=== PATIENT | male | born 1970 | race Caucasian/White ===

== ENCOUNTER 2017-12-18 06:32 | Inpatient (IN) ==
[2017-12-18 07:15] LABS: Basophils # 0.1 10*3/uL (0.0-0.2); Eosinophils # 0.4 10*3/uL (0.0-0.87); Eosinophils % 4.8 % (0.00-10.9); Hematocrit 45.1 VOL% (42.0-52.0); Hemoglobin 15.5 GM/DL (14.0-18.0); Immature Granulocytes % 0.5 %; Immature Granulocytes Absolute 0.04 #; Lymphocytes # 2.1 10*3/uL (1.4-4.0); Lymphocytes % 23.8 % (21.2-54.2); Mean Corpuscular HGB Conc 34.4 GM/DL (32-36); Mean Corpuscular Hemoglobin 30 PG (27-34); Mean Corpuscular Volume 88.3 FL (87-102); Monocytes # 0.8 10*3/uL (0.11-0.8); Monocytes % 9.4 % (1.7-12.7); Neutrophils # 5.2 10*3/uL (1.4-7.4); Neutrophils % 60.5 % (38.7-73.9); Platelet Count 239 T/CUMM (130-400); Red Blood Count 5.11 MC/CUMM (3.8-5.5); Red Cell Distribution Width 12.5 % (9.3-17.3); White Blood Count 8.7 T/CUMM (4-12)
[2017-12-18 07:20] LABS: Apearance,Urine CLEAR (Clear); Bilirubin,Urine Negative (Negative); Blood, Urine Negative (Negative); Glucose,Urine (UA) Negative (Negative); Hyaline Casts,Urine 1 /LPF (0-3); Ketones,Urine Negative (Negative); Mucus,Urine Occasional /LPF (Occasional); Nitrite,Urine Negative (Negative); Protein,Urine 30 MG/DL; RBC,Urine <1 /HPF (0-4); Urine Color Yellow (Yellow); Urine Specific Gravity 1.014 (1.001-1.035); Urine Urobilinogen < 2.0 EU/DL (0.2-1.0); WBC,Urine 1 /HPF (0-6)
[2017-12-18 07:33] LABS: Barbiturates Screen,Urine Negative (Negative); Benzodiazepines Screen,Urine Negative (Negative); Cannabinoid Screen,Urine Negative (Negative); Opiate Screen,Urine Negative (Negative); Phencyclidine Screen,Urine Negative (Negative)
[2017-12-18 07:46] LABS: Alanine Aminotransferase 26 U/L (16-61); Albumin 4.1 G/DL (3.4-5.0); Alkaline Phosphatase 100 U/L (45-117); Aspartate Amino Transferase 14 U/L (0-37); Blood Urea Nitrogen 9 MG/DL (7-18); Calcium 9.2 MG/DL (8.5-10.1); Glucose 146 MG/DL (74-106); Potassium 4.9 MMOL/L (3.5-5.1); Sodium 136 MMOL/L (136-145); Total Protein 7.8 G/DL (6.4-8.3)
[2017-12-18 07:51] LABS: PT Patient Result 10.4 SECS
[2017-12-18] MEDS ORDERED: ONDANSETRON 4 MG/2 ML VIAL IV PRN (08:32)
[2017-12-18] MEDS ORDERED: LABETALOL 20 MG/4 ML SYRINGE IV PRN (08:32)
[2017-12-18] MEDS ORDERED: NICOTINE 21 MG/24 HR PATCH TRANSDERM PRN (08:32)
[2017-12-18 09:05] LABS: Risk Ratio 4.42; Thyroid Stimulating Hormone 0.999 uIU/ml (0.358-3.74); VLDL CHOLESTEROL 13.6 MG/DL
[2017-12-18] MEDS: PANTOPRAZOLE 40 MG VIAL IV SCH (10:15)
[2017-12-18] MEDS: ENOXAPARIN 40 MG/0.4 ML SYRINGE SUBCUT SCH (10:17)
[2017-12-18] MEDS: SODIUM CHLORIDE 0.9% 1,000 ML IV SCH ×2 (10:17→20:00)
[2017-12-18] MEDS: MORPHINE 2 MG/1 ML SYRINGE IV PRN ×2 (10:23→22:28)
[2017-12-18] MEDS: CLOPIDOGREL 75 MG TABLET PO SCH (11:09)
[2017-12-18] MEDS: ASPIRIN 325 MG TABLET PO SCH (11:09)
[2017-12-18] MEDS: ATORVASTATIN 40 MG TABLET PO SCH (21:43)
[2017-12-18] MEDS: METOPROLOL TARTRATE 5 MG/5 ML VIAL IV PRN (22:23)
[2017-12-19] MEDS: SODIUM CHLORIDE 0.9% 1,000 ML IV SCH ×2 (04:00→20:48)
[2017-12-19 05:46] LABS: Basophils % 0.4 % (0.0-0.8); Eosinophils # 0.3 10*3/uL (0.0-0.87); Eosinophils % 2.6 % (0.00-10.9); Hematocrit 42.1 VOL% (42.0-52.0); Hemoglobin 14.4 GM/DL (14.0-18.0); Immature Granulocytes % 0.4 %; Immature Granulocytes Absolute 0.04 #; Lymphocytes # 1.9 10*3/uL (1.4-4.0); Lymphocytes % 18.4 % (21.2-54.2); Mean Corpuscular HGB Conc 34.2 GM/DL (32-36); Mean Corpuscular Hemoglobin 30 PG (27-34); Mean Corpuscular Volume 88.8 FL (87-102); Monocytes # 0.6 10*3/uL (0.11-0.8); Monocytes % 6.1 % (1.7-12.7); Neutrophils # 7.5 10*3/uL (1.4-7.4); Neutrophils % 72.1 % (38.7-73.9); Platelet Count 224 T/CUMM (130-400); Red Blood Count 4.74 MC/CUMM (3.8-5.5); Red Cell Distribution Width 12.7 % (9.3-17.3); White Blood Count 10.4 T/CUMM (4-12)
[2017-12-19 06:11] LABS: Albumin 3.4 G/DL (3.4-5.0); Bilirubin,Total 1.3 MG/DL (0.2-1.0); Calcium 8.5 MG/DL (8.5-10.1); Osmolality,Calculated 272.8 MOS/KG (273-304); Potassium 4.2 MMOL/L (3.5-5.1); Total Protein 6.3 G/DL (6.4-8.3)
[2017-12-19] MEDS: PANTOPRAZOLE 40 MG VIAL IV SCH (09:32)
[2017-12-19] MEDS: ENOXAPARIN 40 MG/0.4 ML SYRINGE SUBCUT SCH (09:32)
[2017-12-19] MEDS: ASPIRIN 325 MG TABLET PO SCH (09:33)
[2017-12-19] MEDS: CLOPIDOGREL 75 MG TABLET PO SCH (09:33)
[2017-12-19] MEDS: MORPHINE 2 MG/1 ML SYRINGE IV PRN (10:52)
[2017-12-19] MEDS ORDERED: ACETAMINOPHEN 325 MG/10.15 ML UDCUP PO PRN (14:54)
[2017-12-19] MEDS: ATORVASTATIN 40 MG TABLET PO SCH (20:48)
[2017-12-19] MEDS: METOPROLOL TARTRATE 5 MG/5 ML VIAL IV PRN (20:52)
[2017-12-20] MEDS: CLOPIDOGREL 75 MG TABLET PO SCH (09:27)
[2017-12-20] MEDS: ASPIRIN 325 MG TABLET PO SCH (09:27)
[2017-12-20] MEDS: PANTOPRAZOLE 40 MG VIAL IV SCH (09:27)
[2017-12-20] MEDS: ENOXAPARIN 40 MG/0.4 ML SYRINGE SUBCUT SCH (09:28)
[2017-12-20] MEDS: METOPROLOL TARTRATE 5 MG/5 ML VIAL IV PRN (09:42)
[2017-12-20 11:31] VITALS: BP 148/63
== END 2017-12-20 13:30 | disposition home or self-care (01) | DRG 66 ==
LOC: N.ED 06:32 → SUATTDRO 08:32 → N.EDINP 08:32 → N.2E 09:21
PROVIDERS: ADMIT Internal Medicine; ATTEND Internal Medicine Cardiovascular Disease